=== PATIENT | male | born 1950 | race Caucasian/White ===

== ENCOUNTER → 2016-11-16 | Outpatient (CLI) | payer OTHER | LOC: BMCIMAGING 11:03 | PROVIDERS: ATTEND Emergency Medicine | DX: J40 Bronchitis, not specified as acute or chronic (principal) ==

== ENCOUNTER → 2017-01-01 | Outpatient (CLI) | payer OTHER | LOC: BMCIMAGING 10:17 | PROVIDERS: ATTEND Family Medicine | DX: S92.412A Displaced fracture of proximal phalanx of left great toe, initial encounter for closed fracture (principal) ==

== ENCOUNTER → 2017-12-20 | Outpatient (CLI) | payer OTHER | LOC: BMCIMAGING 15:54 | PROVIDERS: ATTEND Family Medicine | DX: R22.31 Localized swelling, mass and lump, right upper limb (principal); M19.041 Primary osteoarthritis, right hand ==

== ENCOUNTER → 2018-06-18 | Outpatient (CLI) | payer OTHER | LOC: BMCIMAGING 14:43 | PROVIDERS: ATTEND Emergency Medicine | DX: R22.31 Localized swelling, mass and lump, right upper limb (principal) ==